=== PATIENT | female | born 1960 | race Caucasian/White ===

== ENCOUNTER 2018-02-02 08:52 | Emergency (ER) | payer OTHER ==
[~2018-02-02] VITALS: Ht 160 cm; Wt 90.9 kg
[2018-02-02 09:02] VITALS: TEMP 98.5
[2018-02-02] MEDS ORDERED: ARMOUR THYROID180 M1 PO (09:41)
[2018-02-02] MEDS ORDERED: EFFEXOR 75M75 MG/TAB PO (09:41)
[2018-02-02] MEDS ORDERED: COZAAR100 MG PO (09:41)
[2018-02-02] MEDS ORDERED: ULTRAM 50MG TAB50 MG PO (09:42)
[2018-02-02] MEDS ORDERED: BACTRIM DS 8001 TAB PO (09:42)
[2018-02-02] MEDS ORDERED: TORADOL 10MG TA10 MG PO (09:42)
[2018-02-02] MEDS ORDERED: NORCO 325 MG-51 TAB PO (10:43)
[2018-02-02] MEDS ORDERED: CEPHALEXIN500 M1 PO (10:43)
[2018-02-02 10:53] VITALS: BP 146/80; PULSE 86
== END 2018-02-02 10:55 | disposition home or self-care (01) ==
LOC: COL.ER 08:52
DX: L02.01 Cutaneous abscess of face (principal)